=== PATIENT | male | born 2000 | race African-American/Black ===

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

== ENCOUNTER 2018-06-17 23:04 | Emergency (ER) | payer SELFPAY ==
[~2018-06-17] VITALS: Ht 177.8 cm; Wt 83.1 kg
[2018-06-18] MEDS ORDERED: LIDOCAINE HCL/PF 1% 10 MG/ML 5ML VIAL IJ ONE
[2018-06-18] MEDS ORDERED: LIDOCAINE HCL 2% JELLY 5ML TOP ONE
[2018-06-18] MEDS ORDERED: HYDROCODONE/ACETAMINOPHEN 5/325MG TABLET PO ONE
[2018-06-18] MEDS ORDERED: ONDANSETRON 4MG ODT PO ONE
[2018-06-18] MEDS ORDERED: BACITRACIN ZINC OINT UDPKT TOP ONE
[2018-06-18] MEDS ORDERED: TETANUS, DIPHTHERIA, PERTUSSIS VAC/PF 0.5ML (>7YR OLD) IM ONE
[2018-06-18 02:26] VITALS: BP 121/79
== END 2018-06-18 02:28 | disposition home or self-care (01) ==
LOC: ER 23:04
DX: S02.2XXA Fracture of nasal bones, initial encounter for closed fracture (principal); F17.200 Nicotine dependence, unspecified, uncomplicated; F12.10 Cannabis abuse, uncomplicated; Y08.89XA Assault by other specified means, initial encounter; Y93.89 Activity, other specified; Y92.89 Other specified places as the place of occurrence of the external cause; Y99.8 Other external cause status
CPT/HCPCS: 12011; 70486; 90471; 90715; 99284; J3490; Q0162; Z7610

== ENCOUNTER 2018-06-22 12:29 | Emergency (ER) | payer SELFPAY ==
[~2018-06-22] VITALS: Ht 177.8 cm; Wt 83.0 kg
[2018-06-22] MEDS ORDERED: BACITRACIN ZINC OINT UDPKT TOP ONE (13:30)
[2018-06-22 13:52] VITALS: BP 124/79
== END 2018-06-22 13:57 | disposition home or self-care (01) ==
LOC: ER 12:29
DX: Z48.02 Encounter for removal of sutures (principal)
CPT/HCPCS: 99283; Z7610